=== PATIENT | female | born 1990 | race Caucasian/White ===

== ENCOUNTER 2016-11-28 22:08 | Emergency (ER) | payer BC ==
[~2016-11-28] VITALS: Ht 165.1 cm; Wt 67.5 kg
[~2016-11-28 22:08] MED LIST: IBUPROFEN800 MG PO; MACROBID100 MG PO; VITAFOL-OB+DHA1 EACH PO
[2016-11-29 00:17] LABS: HEMATOCRIT 36.3 % (36.0-46.0); MCH 31.5 PG (29.0-34.0); MCHC 34.2 G/DL (30.0-36.0); MCV 92.1 FL (83-99); MEAN PLAT.VOLUME 10.2 uM^3 (9.5-12.4); PLATELET COUNT 218 K/uL (156-360); RBC DIS.WIDTH-CV 11.8 % (11.8-14.6); RED BLOOD COUNT 3.94 M/uL (3.80-5.20); WHITE BLOOD COUNT 9.2 K/uL (4.1-10.2)
[2016-11-29 00:28] LABS: CHLORIDE 109 mEq/L (99-109); POTASSIUM 3.8 mEq/L (3.7-5.4); SODIUM 141 mEq/L (136-147)
[2016-11-29 00:30] LABS: GLUCOSE 103 mg/dL (70-99)
[2016-11-29 00:31] LABS: ANION GAP 10 MEQ/L (2-14)
[2016-11-29 00:34] LABS: GFR ESTIMATE (CALCULATED) > 59 mL/min/
[2016-11-29 00:35] LABS: UREA NITROGEN (BUN) 16 mg/dL (9-23)
[2016-11-29 00:58] LABS: ADD MIUA? YES; BILIRUBIN NEGATIVE; BLOOD NEGATIVE; COLOR YELLOW ((YELLOW)); GLUCOSE (STRIP) NEGATIVE; KETONES NEGATIVE; LEUKOCYTES TRACE; NITRITE NEGATIVE; PROTEIN (STRIP) NEGATIVE; UROBILINOGEN 0.2 MG/DL (0.2-1.0)
[2016-11-29 01:01] LABS: QUANTITATIVE HCG 138113.6 MIU/ML
[2016-11-29 01:43] LABS: BACTERIA 2+ /HPF; EPITHELIAL CELLS 1+ /HPF; MUCUS TRACE /LPF; UCUL ADDED? YES; WHITE BLOOD CELLS 0-5 /HPF (0-5)
[2016-11-29] MEDS ORDERED: KEFLEX500 MG PO (01:56)
[2016-11-29 02:04] VITALS: BP 136/80
== END 2016-11-29 02:07 | disposition home or self-care (01) ==
LOC: EME 22:08 → EXP 22:08
PROVIDERS: Physician Assistant
DX: O23.41 Unspecified infection of urinary tract in pregnancy, first trimester (principal); Z3A.11 11 weeks gestation of pregnancy; Z87.891 Personal history of nicotine dependence
CPT/HCPCS: 76770; 76801; 80048; 81003; 84702; 85027; 87086; 99281; 99284

== ENCOUNTER 2017-06-28 00:21 | Inpatient (IN) | payer BC ==
[2017-06-28] VITALS (46 sets, daily range): BP systolic 103–171; BP diastolic 54–101
[~2017-06-28 00:21] MED LIST changes: +KEFLEX500 MG PO
[2017-06-28 01:24] LABS: BASOPHIL (%) 0.3 % (0-1); EOSINOPHIL (%) 1.4 % (0-5); EOSINOPHIL COUNT 0.2 K/uL (0-0.3); HEMATOCRIT 35.3 % (36.0-46.0); HEMOGLOBIN 12.1 G/DL (11.9-15.5); IMMATURE GRANULOCYTE (%) 0.5 % (0.0-0.7); LYMPHOCYTE (%) 21.8 % (15-42); LYMPHOCYTE COUNT 2.4 K/uL (1.0-2.8); MCH 31.1 PG (29.0-34.0); MCHC 34.3 G/DL (30.0-36.0); MCV 90.7 FL (83-99); MONOCYTE (%) 10.5 % (3-12); MONOCYTE COUNT 1.2 K/uL (0-0.8); NEUTROPHIL (%) 65.5 % (45-76); NEUTROPHIL COUNT 7.2 K/uL (1.8-6.4); PLATELET COUNT 170 K/uL (156-360); RBC DIS.WIDTH-CV 13.9 % (11.8-14.6); RBC DIS.WIDTH-SD 45.8 % (39-53); RED BLOOD COUNT 3.89 M/uL (3.80-5.20)
[2017-06-28 01:36] LABS: AMPHETAMINE NEGATIVE (500 ng/mL); BARBITURATES NEGATIVE (200 ng/mL); BENZODIAZEPINES NEGATIVE (150 ng/mL); BUPRENORPHINE NEGATIVE (10 ng/mL); COCAINE NEGATIVE (150 ng/mL); METHADONE NEGATIVE (200 ng/mL); METHAMPHETAMINE NEGATIVE (500 ng/mL); OPIATES (MORPHINE) NEGATIVE (100 ng/mL); OXYCODONE NEGATIVE (100 ng/mL); PHENCYCLIDINE NEGATIVE (25 ng/mL); PROPOXYPHENE NEGATIVE (300 ng/mL); THC CANNABINOIDS NEGATIVE (50 ng/mL); TRICYCLIC ANTIDEPRESSANTS NEGATIVE (300 ng/mL)
[2017-06-29 07:11] VITALS: BP 119/69
[2017-06-29 14:42] VITALS: BP 121/74
[2017-06-30 07:30] VITALS: BP 139/80
[2017-06-30] MEDS ORDERED: IBUPROFEN800 MG PO (13:53)
== END 2017-06-30 14:00 | disposition home or self-care (01) | DRG 775 ==
LOC: LDRP-OP 00:21 → 2WEST 00:22 → LDRP-OP 07-22 09:17
PROVIDERS: Advanced Practice Midwife
DX: O70.0 First degree perineal laceration during delivery (principal); Z3A.41 41 weeks gestation of pregnancy; Z37.0 Single live birth; Z87.440 Personal history of urinary (tract) infections
CPT/HCPCS: 85025; C1755; J3010; J7120